=== PATIENT | male | born 1985 | race Caucasian/White ===

== ENCOUNTER 2025-08-21 05:01 | Emergency (ER) | payer OTHER, SELFPAY ==
[2025-08-21 05:02] VITALS: BP 123/69; PULSE 85; RESP 20; TEMP 37.1; O2SAT 97; BMI 36.6
--- NOTE | 2025-08-21 05:15 | CT_ITS ---
PROCEDURE: CT/Chest without Contrast
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
[2025-08-21 06:55] VITALS: BP 129/74; PULSE 80; RESP 20; TEMP 37.1; O2SAT 98
== END 2025-08-21 07:00 | disposition home or self-care (01) ==
PROVIDERS: Emergency Provider Emergency Medicine; Visit Provider Emergency Medicine
DX: S20.20XA Contusion of thorax, unspecified, initial encounter (principal); R07.9 Chest pain, unspecified; I10 Essential (primary) hypertension; S80.211A Abrasion, right knee, initial encounter; V47.5XXA Car driver injured in collision with fixed or stationary object in traffic accident, initial encounter; W22.10XA Striking against or struck by unspecified automobile airbag, initial encounter; Y92.410 Unspecified street and highway as the place of occurrence of the external cause; Z79.899 Other long term (current) drug therapy; F32.A Depression, unspecified; F41.9 Anxiety disorder, unspecified; F17.210 Nicotine dependence, cigarettes, uncomplicated
CPT/HCPCS: 71250; 99282